=== PATIENT | male | born 1990 | race Caucasian/White ===

== ENCOUNTER 2020-06-08 07:18 | Emergency (ER) | payer SELFPAY ==
[2020-06-08 07:40] LABS: Absolute Lymphocytes (CBC) 1.3 K/uL (0.7-4.9); Basophils % 0.9 % (0-1.3); Hematocrit 39.9 % (39.6-49.0); Lymphocytes % 16.6 % (15.3-44.8); MPV 7.4 fL (7.6-11.3); RBC Red Blood Cell Count 4.59 M/uL (4.33-5.43)
[2020-06-08 07:43] LABS: Protime INR 1.06
--- NOTE | 2020-06-08 07:45 | RAD REPORT ---
EXAM DESCRIPTION: CT - Head Brain Wo Cont - 06/08/2020 7:33 am CLINICAL HISTORY: AMS COMPARISON: No comparisons TECHNIQUE: Axial 5 mm thick images of the head were obtained without IV contrast. All CT scans are performed using dose optimization technique as appropriate and may include automated exposure control or mA/KV adjustment according to patient size. FINDINGS: No intracranial hemorrhage, mass, cerebral edema or shift of mid-line structures. No corti ileana edema or sulcal effacement. No abnormal extra-axial fluid collections. Ventricles are normal. Mastoid air cells and visualized portions of the paranasal sinuses are clear. No acute bony findings. IMPRESSION: Negative non-contrast CT head examination.
[2020-06-08 08:03] LABS: ALT/SGPT 44 U/L (12-78); AST/SGOT 37 U/L (15-37); Albumin 3.9 g/dL (3.4-5.0); Alkaline Phosphatase 74 U/L (45-117); BUN Blood Urea Nitrogen 29 mg/dL (7-18); Bicarbonate 26 mmol/L (21-32); Bilirubin Direct 0.4 mg/dL (0-0.2); Bilirubin Total 2.2 mg/dL (0.2-1.0); Glucose Level 90 mg/dL (74-106); Potassium 3.2 mmol/L (3.5-5.1); Protein, Total 7.3 g/dL (6.4-8.2); Sodium Level 141 mmol/L (136-145)
[2020-06-08 08:04] LABS: Barbiturates NEGATIVE (NEGATIVE); Benzodiazepines NEGATIVE (NEGATIVE); Cocaine NEGATIVE (NEGATIVE); METHAMPHETAM POSITIVE (NEGATIVE); Methadone NEGATIVE (NEGATIVE); Opiates NEGATIVE (NEGATIVE); Phencyclidine NEGATIVE (NEGATIVE); THC Cannibis NEGATIVE (NEGATIVE)
[2020-06-08 08:53] LABS: Urine Blood NEGATIVE (NEG); Urine Glucose NEGATIVE (NEG); Urine Protein TRACE (NEG); Urine Specific Gravity >1.030 (1.005-1.030)
[2020-06-08] MEDS ORDERED: ZIPRASIDONE MESYLA 20 MG/VIAL IM ONE (10:19)
[2020-06-08] MEDS ORDERED: WATER FOR INJ,STERILE 10 ML ONE (10:19)
--- NOTE | 2020-06-08 11:10 | ER ---
Nurse's Notes [facility] [place] Name: Gabe Long Age: 30 yrs Sex: Male : 1990 Arrival Date: 06/08/2020 Time: 07:19 Bed 3 Private MD: Diagnosis: Paranoid schizophrenia;Schizoaffective disorder, unspecified Presentation: 06/08 07:22 Chief complaint: EMS states: Pt was found verbally unresponsive lying in field. ph Bystanders called police c/o a man wandering around w/ a gun. When police arrived the pt was found in a position in a field w/ no shirt or shoes, shoes and backpack were nearby. Pt refusing to speak but will occasionally nod yes or no. VSS BP 140/90 HR 80-86. Pt refusing to give name or date. Awake and alert upon arrival to ED. Coronavirus screen: Client denies travel out of the [place] in the last 14 days. At this time, the client does not indicate any symptoms associated with coronavirus-19. Ebola Screen: No symptoms or risks identified at this time. Initial Sepsis Screen: Does the patient meet any 2 criteria? No. Patient's initial sepsis screen is negative. Does the patient have a suspected source of infection? No. Patient's initial sepsis screen is negative. Risk Assessment: Do you want to hurt yourself or someone else? Patient reports no desire to harm self or others. Onset of symptoms was June 08, 2020. 07:22 Method Of Arrival: EMS: [facility] ph 07:22 Acuity: SANIA 3 ph 09:59 Acuity: SANIA 2 hb Historical: - Allergies: 07:28 Unable to obtain; ph - PMHx: 07:28 Unable to obtain; ph - Immunization history:: Adult Immunizations unknown. - Social history:: Smoking status: unknown. Screenin:27 Abuse screen: Denies threats or abuse. Denies injuries from another. Nutritional ph screening: No deficits noted. Tuberculosis screening: No symptoms or risk factors identified. Fall Risk None identified. Assessment: 07:29 General: Appears in no apparent distress. comfortable, slender, Behavior is ph cooperative, flat, quiet, Pt will nod and gesture w/ hands but will not respond verbally. Pain: Denies pain. Neuro: Level of Consciousness is awake, alert, obeys commands. Cardiovascular: Capillary refill < 3 seconds in bilateral fingers. Respiratory: Airway is patent Respiratory effort is even, unlabored. GI: No signs and/or symptoms were reported involving the gastrointestinal system. Abdomen is flat, non-distended. Derm: Skin is intact, Skin is normal, Skin temperature is cool. Musculoskeletal: Circulation, motion, and sensation intact. Range of motion: intact in all extremities. 07:30 Reassessment: Pt used urinal to give urine specimen unassisted. ss 08:04 Reassessment: Patient appears in no apparent distress at this time. Patient and/or ph family updated on plan of care and expected duration. Pain level reassessed. Pt awake, lying in bed w/ lights off in room, when asked if he would like something to eat or drink pt softly repeats, "white, white, white." Pt provided w/ warm blanket and encouraged to rest, VSS, awaiting lab an radiology results. 09:28 Reassessment: Patient appears in no apparent distress at this time. Patient and/or hb family updated on plan of care and expected duration. Pain level reassessed. 10:15 Reassessment: Patient appears in no apparent distress at this time. Patient and/or ph family updated on plan of care and expected duration. Pain level reassessed. Pt more alert, now responding verbally, reports that his name is Gabe Long and that his is in March. Noted to be attempting to remove IV, picking at tape and Tegaderm, states, " It's too deep in my vein. It doesn't need to be that deep." Pt encouraged to leave IV in place for medications, pt continues to attempted to remove IV. IV d/c by nurse and site dressed w/ gauze and coban. 11:01 Reassessment: Went to check on pt, found to be gone from room, belongings gone as well, ph checked lobby and saw pt walking out into parking lot w/ back pack, ERP notified, pt will be charted out as eloped. Vital Signs: 07:22 BP 140 / 102; Pulse 76; Resp 18; Temp 96.7(A); Pulse Ox 100% on R/A; Weight 68.04 kg; ph 08:00 BP 151 / 104; Pulse 80; Resp 18; Pulse Ox 98% on R/A; ph 09:28 BP 143 / 97; Pulse 88; Resp 16; Pulse Ox 99% on R/A; hb 10:33 BP 142 / 90; Pulse 86; Resp 18; Pulse Ox 99% on R/A; ph ED Course: 07:19 Patient arrived in ED. ph 07:20 Easton Arreola MD is Attending Physician. kdr 07:27 Triage completed. ph 07:[address] via stretcher. ph 07:28 Patient has correct armband on for positive identification. Placed in gown. Bed in low ph position. Call light in reach. Side rails up X2. meat and poultry inspector on. Pulse ox on. NIBP on. Door closed. Noise minimized. Warm blanket given. 07:28 Arm band placed on Patient placed in an exam room, on a stretcher. ph 07:29 Maintain EMS IV. Dressing intact. Good blood return noted. Site clean \\T\\ dry. Gauge \\T\\ ss site: 20 gauge in L AC. Flushed left antecubital. 07:32 CT Head Brain wo Cont In Process Unspecified. EDMS 07:39 Urine collected: clean catch specimen, wendy colored, Amount Voided: 200mL. ss 07:59 Jackie Dorado, RN is Primary Nurse. ph 10:25 No provider procedures requiring assistance completed. IV discontinued, intact, ph bleeding controlled, No redness/swelling at site. Pressure dressing applied. Administered Medications: 11:06 Not Given (Patient Refused): Potassium Chloride 40 mEq PO once ph 11:06 Not Given (Patient Refused): Geodon 20 mg IM once ph Outcome: 11:07 Eloped from patient exam room, after seeing physician Time discovered patient gone: ph June 08, 2020 at 10:55 11:07 Condition: stable 11:10 Patient left the ED. ph Signatures: Dispatcher [employer] EDMS Easton Arreola MD MD kdr Smirch, Shelby, RN RN Jackie Dorado RN RN Arely Del Valle, JENNA RN
--- NOTE | 2020-06-08 11:10 | EDPHYS ---
Physician Documentation [facility] Name: Gabe Long Age: 30 yrs Sex: Male : 1990 Arrival Date: 06/08/2020 Time: 07:19 Bed 3 Private MD: ED Physician Easton Arreola HPI: 06/08 07:22 This 35 yrs old Male presents to ER via Unassigned with complaints of poorly kdr Unresponsive. 07:22 The patient presents with Decreased interactively - eyes open and in no apparent kdr distress. Simply not speaking though he occasionally nods to EMS questions. The patient was found laying in a position in a field. Onset: The symptoms/episode began/occurred at an unknown time. Possible causes: drug use, head injury. Associated signs and symptoms: The patient has no apparent associated signs or symptoms. Current symptoms: In the emergency department the patient's symptoms are unchanged from the initial presentation. Patient's baseline: Unknown. It is unknown whether or not the patient has had similar symptoms in the past. It is unknown whether or not the patient has recently seen a physician. Historical: - Allergies: 07:28 Unable to obtain; ph - PMHx: 07:28 Unable to obtain; ph - Immunization history:: Adult Immunizations unknown. - Social history:: Smoking status: unknown. ROS: 07:22 Constitutional: Unable to obtain as patient is uncooperative kdr 07:22 Unable to obtain ROS due to altered mental status. Exam: 07:25 Constitutional: This is a well developed, well nourished patient who is awake, alert, kdr and in no acute distress. Head/Face: Normocephalic, atraumatic. Eyes: Pupils equal round and reactive to light, extra-ocular motions intact. Lids and lashes normal. Conjunctiva and sclera are non-icteric and not injected. Cornea within normal limits. Periorbital areas with no swelling, redness, or edema. Neck: Trachea midline, no thyromegaly or masses palpated, and no cervical lymphadenopathy. Supple, full range of motion without nuchal rigidity, or vertebral point tenderness. No Meningismus. Chest/axilla: Normal chest wall appearance and motion. Nontender with no deformity. No lesions are appreciated. Cardiovascular: Regular rate and rhythm with a normal S1 and S2. No gallops, murmurs, or rubs. Normal PMI, no JVD. No pulse deficits. Respiratory: Lungs have equal breath sounds bilaterally, clear to auscultation and percussion. No rales, rhonchi or wheezes noted. No increased work of breathing, no retractions or nasal flaring. Abdomen/GI: Soft, non-tender, with normal bowel sounds. No distension or tympany. No guarding or rebound. No evidence of tenderness throughout. Back: No spinal tenderness. No costovertebral tenderness. Full range of motion. Skin: Warm, dry with normal turgor. Normal color with no rashes, no lesions, and no evidence of cellulitis. MS/ Extremity: Pulses equal, no cyanosis. Neurovascular intact. Full, normal range of motion. 07:25 Neuro: Motor: moves all fours. 07:25 Psych: Behavior/mood is uncooperative, inappropriate for age, Affect is flat, Unable to assess. Unable to assess, The patient was cooperative in providing a urine sample. Vital Signs: 07:22 BP 140 / 102; Pulse 76; Resp 18; Temp 96.7(A); Pulse Ox 100% on R/A; Weight 68.04 kg; ph 08:00 BP 151 / 104; Pulse 80; Resp 18; Pulse Ox 98% on R/A; ph 09:28 BP 143 / 97; Pulse 88; Resp 16; Pulse Ox 99% on R/A; hb 10:33 BP 142 / 90; Pulse 86; Resp 18; Pulse Ox 99% on R/A; ph MDM: 10:01 Data reviewed: vital signs, nurses notes, lab test result(s), radiologic studies. kdr Counseling: I had a detailed discussion with the patient and/or guardian regarding: the historical points, exam findings, and any diagnostic results supporting the discharge/admit diagnosis, lab results, radiology results, the need to transfer to another facility. ED course: The patient is now talking but not making any sense. He will not say his name as yet - when asked, he said "Horn." When I asked for his first name, he replied, "why don't you ask for my middle name." He otherwise appears to be stable and without any acute physical danger.. 11:09 Patient medically screened. kdr 06/08 07:22 Order name: Acetaminophen; Complete Time: 09:49 kdr 06/08 07:22 Order name: Basic Metabolic Panel; Complete Time: 09:49 kdr 06/08 07:22 Order name: CBC with Diff; Complete Time: 09:49 kdr 06/08 07:22 Order name: ETOH Level; Complete Time: 09:49 kdr 06/08 07:22 Order name: Hepatic Function; Complete Time: 09:49 kdr 06/08 07:22 Order name: PT-INR; Complete Time: 09:49 [facility] 06/08 07:22 Order name: Ptt, Activated; Complete Time: 09:49 [facility] 06/08 07:22 Order name: Salicylate; Complete Time: 09:49 kdr 06/08 07:22 Order name: Urine Drug Screen; Complete Time: 09:49 kdr 06/08 07:22 Order name: EKG; Complete Time: 07:23 kdr 06/08 07:22 Order name: CT Head Brain wo Cont; Complete Time: 09:49 kdr 06/08 07:45 Order name: Urine Dipstick--Ancillary (enter results); Complete Time: 09:49 06/08 07:22 Order name: IV Saline Lock; Complete Time: 07:29 kdr 06/08 07:22 Order name: Labs collected and sent; Complete Time: 07:29 kdr 06/08 07:22 Order name: Urine Dipstick-Ancillary (obtain specimen); Complete Time: 07:29 kdr Administered Medications: 11:06 Not Given (Patient Refused): Potassium Chloride 40 mEq PO once ph 11:06 Not Given (Patient Refused): Geodon 20 mg IM once ph Disposition: 06/08/20 11:09 Patient left the facility after being seen by provider. Preliminary diagnosis are Paranoid schizophrenia, Schizoaffective disorder, unspecified. - Patient left due to feeling better. - Condition is Fair. - Problem is an acute exacerbation. - Symptoms have improved. Signatures: Dispatcher [employer] EDMS Easton Arreola MD MD kdr Jackie Doraod RN RN ph Corrections: (The following items were deleted from the chart) 11:10 11:09 06/08/2020 11:09 Patient left the facility after being seen by provider. ph Preliminary diagnosis is Paranoid schizophrenia; Schizoaffective disorder, unspecified. Reason stated they are leaving due to feeling better. Condition is Fair. Problem is an acute exacerbation. Symptoms have improved. kdr
[2020-06-08 14:41] VITALS: TEMP 96.7
[2020-06-08 14:44] VITALS: O2SAT 99
[2020-06-08 14:47] VITALS: BP 142/90
== END 2020-06-08 11:10 | disposition left against medical advice (07) ==
LOC: EDBD 07:18 → MERGE 07:18 → ER 07:18
DX: F20.0 Paranoid schizophrenia (principal)
CPT/HCPCS: 36415; 70450; 80048; 80076; 80307; 80320; 80329; 81003; 85025; 85610; 85730; 99285; J3486